=== PATIENT | male | born 1975 | race Caucasian/White ===

== ENCOUNTER 2017-10-05 21:06 | Emergency (ER) | payer OTHER ==
[2017-10-05 22:58] LABS: Hematocrit 44 % (42-52); Hemoglobin 14.7 g/dl (14.0-18.0); Mean Corpuscular HGB Conc 34 g/dl (31-36); Mean Corpuscular Hemoglobin 30 pg (27-31); Mean Corpuscular Volume 89 fL (80-94); Mean Platelet Volume 9 um3 (7.4-10.4); Red Blood Count 4.92 10^6/ul (4.0-5.4); Red Cell Distribution Width 14 % (10.5-15); White Blood Count 12.6 10^3/ul (3.5-10.8)
[2017-10-05 23:07] LABS: Albumin 4.1 g/dL (3.2-5.2); BUN/Creatinine Ratio 11.5 (8-20); Calcium 9.3 mg/dL (8.6-10.3); EGFR African American 78.6 (>60); EGFR Non-African American 61.1 (>60); Globulin 2.3 g/dL (2-4); Potassium 3.9 mmol/L (3.5-5.0); Total Bilirubin 0.6 mg/dL (0.2-1.0); Total Protein 6.4 g/dL (6.4-8.9)
[2017-10-05] MEDS ORDERED: NS 0.9% 1000 ML* 1,000 ML IV ONE (23:18)
[2017-10-06] MEDS ORDERED: Morphine INJ* 4 MG/ML 1 ML CARPUJECT IV ONE (00:18)
[2017-10-06 00:49] LABS: Urine Bacteria Absent (Absent); Urine Bilirubin Negative (Negative); Urine Glucose 1+(50 mg/dL) (Negative); Urine Nitrite Negative (Negative)
[2017-10-06 00:53] LABS: BUN/Creatinine Ratio 13.7 (8-20); Calcium 8.8 mg/dL (8.6-10.3); EGFR Non-African American 80.9 (>60); Potassium 3.8 mmol/L (3.5-5.0)
--- NOTE | 2017-10-06 01:52 | ED ---
Hemanth Darby Nikita, scribed for Chacorta Hinojosa MD on 10/05/17 at 2200 . Abdominal Pain/Male - HPI Summary HPI Summary: This patient is a 42 year old M presenting to ED with a chief complaint of R flank pain s/p working on his car at 1930. The CC is described as intermittent, starting out as mild pain and has worsened since onset. The patient rates the pain 10/10 in severity. Symptoms aggravated by standing and sitting. Symptoms alleviated by lying down. Patient reports vomiting (x2 at 2030) and dark urine. Patient denies hematuria and testicular pain. PMHx of kidney stones and Cardona s (dx 2 years ago). - History of Current Complaint Chief Complaint: EDFlankPain Stated Complaint: BACK PAIN Hx Obtained From: Patient Onset/Duration: Sudden Onset, Lasting Hours, Still Present Timing: Intermittent, Lasting Hours Severity Initially: Severe Severity Currently: Severe Pain Intensity: 10 Pain Scale Used: 0-10 Numeric Location: Flank - R flank Radiates: No Aggravating Factor(s): Other: - standing and sitting Alleviating Factor(s): Position - lying down Associated Signs And Symptoms: Positive: Other - Patient reports vomiting (x2 at 2030) and dark urine. Patient denies hematuria and testicular pain. - Allergies/Home Medications Allergies/Adverse Reactions: Allergies Allergy/AdvReac Type Severity Reaction Status Date / Time No Known Allergies Allergy Verified 12/05/16 08:01 PMH/Surg Hx/FS Hx/Imm Hx Endocrine/Hematology History: Denies: Hx Anticoagulant Therapy, Hx Blood Disorders, Hx Diabetes, Hx Systemic Lupus Erythematosus Cardiovascular History: Denies: Hx Congestive Heart Failure, Hx Hypertension History: Reports: Hx Kidney Stones Denies: Hx Dialysis, Hx Renal Disease Musculoskeletal History: Denies: Hx Rheumatoid Arthritis Sensory History: Reports: Hx Contacts or Glasses - GLASSES Denies: Hx Hearing Aid Opthamlomology History: Reports: Hx Contacts or Glasses - GLASSES - Cancer History Hx Chemotherapy: No - Surgical History Surgery Procedure, Year, and Place: COLONOSCOPY 2012 [facility] Hx Anesthesia Reactions: Yes - UNABLE TO DO COLONOSCOPY W/SEDATION, REQUIRED GEN.NEEDED "A LOT" OF ANES Infectious Disease History: No Infectious Disease History: Denies: Traveled Outside the [place] in Last 30 Days - Family History Known Family History: Positive: Cardiac Disease, Diabetes Negative: Hypertension - Social History Alcohol Use: None Substance Use Type: Reports: None Smoking Status (MU): Former Smoker Amount Used/How Often: 1/2 ppd Length of Time of Smoking/Using Tobacco: 15 YRS Have You Smoked in the Last Year: Yes Review of Systems Positive: Abdominal Pain - R flank pain, Vomiting - (x2 at 2030) Positive: other - dark urine; denies testicular pain. Negative: hematuria All Other Systems Reviewed And Are Negative: Yes Physical Exam Triage Information Reviewed: Yes Vital Signs On Initial Exam: Initial Vitals Temp Pulse Resp BP Pulse Ox 96.9 F 90 22 138/89 98 10/05/17 21:07 10/05/17 21:07 10/05/17 21:07 10/05/17 21:07 10/05/17 21:07 Vital Signs Reviewed: Yes Appearance: Positive: Well-Appearing, No Pain Distress, Well-Nourished Skin: Positive: Warm, Other - no rash Head/Face: Positive: Normal Head/Face Inspection Eyes: Positive: Normal ENT: Positive: Normal ENT inspection, Other - normal mucous membranes Neck: Positive: Supple, Nontender Respiratory/Lung Sounds: Positive: Clear to Auscultation Cardiovascular: Positive: Normal Abdomen Description: Positive: Soft, CVA Tenderness (R) Bowel Sounds: Positive: Present Musculoskeletal: Positive: Normal, Strength/ROM Intact Neurological: Positive: Normal, Alert, Oriented to Person Place, Time Psychiatric: Positive: Normal Diagnostics - Vital Signs Vital Signs Temp Pulse Resp BP Pulse Ox 10/05/17 21:07 96.9 F 90 22 138/89 98 - Laboratory Lab Results: Lab Results 10/05/17 10/05/17 10/05/17 Range/Units 21:54 21:54 21:54 WBC 12.6 H (3.5-10.8) 10^3/ul RBC 4.92 (4.0-5.4) 10^6/ul Hgb 14.7 (14.0-18.0) g/dl Hct 44 (42-52) % MCV 89 (80-94) fL MCH 30 (27-31) pg MCHC 34 (31-36) g/dl RDW 14 (10.5-15) % Plt Count 287 (150-450) 10^3/ul MPV 9 (7.4-10.4) um3 Neut % (Auto) 77.2 (38-83) % Lymph % (Auto) 12.5 L (25-47) % Yell % (Auto) 7.2 (1-9) % Eos % (Auto) 2.2 (0-6) % Baso % (Auto) 0.9 (0-2) % Absolute Neuts (auto) 9.8 H (1.5-7.7) 10^3/ul Absolute Lymphs (auto) 1.6 (1.0-4.8) 10^3/ul Absolute Monos (auto) 0.9 H (0-0.8) 10^3/ul Absolute Eos (auto) 0.3 (0-0.6) 10^3/ul Absolute Basos (auto) 0.1 (0-0.2) 10^3/ul Absolute Nucleated RBC 0 10^3/ul Nucleated RBC % 0 INR (Anticoag Therapy) 0.94 (0.77-1.02) Sodium 139 (133-145) mmol/L Potassium 3.9 (3.5-5.0) mmol/L Chloride 106 (101-111) mmol/L Carbon Dioxide 26 (22-32) mmol/L Anion Gap 7 (2-11) mmol/L BUN 15 (6-24) mg/dL Creatinine 1.30 H (0.67-1.17) mg/dL Est GFR ( Amer) 78.6 (>60) Est GFR (Non-Af Amer) 61.1 (>60) BUN/Creatinine Ratio 11.5 (8-20) Glucose 151 H (70-100) mg/dL Calcium 9.3 (8.6-10.3) mg/dL Total Bilirubin 0.60 (0.2-1.0) mg/dL AST 17 (13-39) U/L ALT 28 (7-52) U/L Alkaline Phosphatase 61 (34-104) U/L Total Protein 6.4 (6.4-8.9) g/dL Albumin 4.1 (3.2-5.2) g/dL Globulin 2.3 (2-4) g/dL Albumin/Globulin Ratio 1.8 (1-3) Lipase 63 (11.0-82.0) U/L Urine Color Urine Appearance Urine pH (5-9) Ur Specific [place] (1.010-1.030) Urine Protein (Negative) Urine Ketones (Negative) Urine Blood (Negative) Urine Nitrate (Negative) Urine Bilirubin (Negative) Urine Urobilinogen (Negative) Ur Leukocyte Esterase (Negative) Urine WBC (Auto) (Absent) Urine RBC (Auto) (Absent) Urine Bacteria (Absent) Urine Glucose (Negative) 10/06/17 10/06/17 Range/Units 00:23 00:23 WBC (3.5-10.8) 10^3/ul RBC (4.0-5.4) 10^6/ul Hgb (14.0-18.0) g/dl Hct (42-52) % MCV (80-94) fL MCH (27-31) pg MCHC (31-36) g/dl RDW (10.5-15) % Plt Count (150-450) 10^3/ul MPV (7.4-10.4) um3 Neut % (Auto) (38-83) % Lymph % (Auto) (25-47) % Yell % (Auto) (1-9) % Eos % (Auto) (0-6) % Baso % (Auto) (0-2) % Absolute Neuts (auto) (1.5-7.7) 10^3/ul Absolute Lymphs (auto) (1.0-4.8) 10^3/ul Absolute Monos (auto) (0-0.8) 10^3/ul Absolute Eos (auto) (0-0.6) 10^3/ul Absolute Basos (auto) (0-0.2) 10^3/ul Absolute Nucleated RBC 10^3/ul Nucleated RBC % INR (Anticoag Therapy) (0.77-1.02) Sodium 139 (133-145) mmol/L Potassium 3.8 (3.5-5.0) mmol/L Chloride 108 (101-111) mmol/L Carbon Dioxide 24 (22-32) mmol/L Anion Gap 7 (2-11) mmol/L BUN 14 (6-24) mg/dL Creatinine 1.02 (0.67-1.17) mg/dL Est GFR ( Amer) 104.0 (>60) Est GFR (Non-Af Amer) 80.9 (>60) BUN/Creatinine Ratio 13.7 (8-20) Glucose 136 H (70-100) mg/dL Calcium 8.8 (8.6-10.3) mg/dL Total Bilirubin (0.2-1.0) mg/dL AST (13-39) U/L ALT (7-52) U/L Alkaline Phosphatase (34-104) U/L Total Protein (6.4-8.9) g/dL Albumin (3.2-5.2) g/dL Globulin (2-4) g/dL Albumin/Globulin Ratio (1-3) Lipase (11.0-82.0) U/L Urine Color Yellow Urine Appearance Cloudy Urine pH 5.0 (5-9) Ur Specific [place] 1.017 (1.010-1.030) Urine Protein 1+(30 mg/dl) H (Negative) Urine Ketones Negative (Negative) Urine Blood 3+ H (Negative) Urine Nitrate Negative (Negative) Urine Bilirubin Negative (Negative) Urine Urobilinogen Negative (Negative) Ur Leukocyte Esterase Negative (Negative) Urine WBC (Auto) Trace(0-5/hpf) (Absent) Urine RBC (Auto) 3+(>10/hpf) H (Absent) Urine Bacteria Absent (Absent) Urine Glucose 1+(50 mg/dl) H (Negative) Result Diagrams: 10/05/17 21:54 10/06/17 00:23 Lab Statement: Any lab studies that have been ordered have been reviewed, and results considered in the medical decision making process. - CT abd/pel CT Interpretation Completed By: Radiologist - 1. There is a 3 mm calculus involving the proximal aspect of the right ureter. There is mild proximal right hydroureter and right hydronephrosis. ED physician has reviewed this radiology report and agrees. Re-Evaluation - Re-Evaluation First Eval Re-Evaluation Time: 00:09 Comment: Discussed with pt about results. Pt feels better. Abdominal Pain Fem Course/Dx - Course Assessment/Plan: Pt feels better after medicaiton here in the ED. No UTI noted. Improved creatinine after fluids, indicative of possible prerenal azotemia. Relieved after fluids. Given that the stone is 3mm it is likely to pass on its own. Pt given flomax and pain medication. Instructed to follow up with urologist promptly. Pt agrees to and understands discharge instructions. - Diagnoses Differential Diagnosis/HQI/PQRI: Other - kidney stones and renal colic Provider Diagnoses: Kidney stones, Renal colic Discharge - Discharge Plan Condition: Improved Disposition: HOME Prescriptions: oxyCODONE/Acetamin 5/325 MG* [Percocet 5/325 TAB*] 1 tab PO Q6H PRN #10 tab MDD 4 tabs PRN Reason: Pain - Moderate To Severe Tamsulosin CAP* [Flomax CAP*] 0.4 mg PO BEDTIME #5 cap Patient Education Materials: Kidney Stones (ED), Renal Colic (ED) Referrals: Sindy Mathew MD [Primary Care Provider] - 7 Days Cruz Christianson MD [Medical Doctor] - Additional Instructions: PLEASE MAKE AN APPOINTMENT FIRST THING IN THE MORNING TO BE SEEN BY DR. CHRISTIANSON WITHIN 3-5 DAYS PLEASE RETURN TO THE EMERGENCY ROOM IF YOU HAVE ANY WORSENING OR CONCERNING SYMPTOMS PLEASE MAKE AN APPOINTMENT FIRST THING IN THE MORNING TO BE SEEN BY YOUR PRIMARY CARE DOCTOR WITHIN 1 WEEK The documentation as recorded by the Hemanth washing[place] Nikita accurately reflects the service I personally performed and the decisions made by me, Chacorta Hinojosa MD.
[2017-10-06 02:05] VITALS: BP 110/63
--- NOTE | 2017-10-06 07:43 | RAD ---
CLINICAL HISTORY: Right flank pain COMPARISON: August 19, 2015 TECHNIQUE: Multiple contiguous axial CT scans were obtained of the abdomen and pelvis, without intravenous contrast enhancement. Coronal and sagittal multiplanar reformations are submitted for review. Oral contrast was not administered. FINDINGS: The study is limited by the lack of intravenous contrast. This limits evaluation of the solid organs and vasculature. LUNG BASES: The lung bases are clear. LIVER: The liver is normal in shape, size, contour, and attenuation. BILE DUCTS: There is no intrahepatic or extrahepatic biliary dilatation. GALLBLADDER: The gallbladder is normal, without pericholecystic inflammatory change. PANCREAS: The pancreas is normal, without mass or ductal dilatation. SPLEEN: Normal in size and appearance. UPPER GI TRACT: Evaluation of the gastrointestinal tract is limited by incomplete gastric distention. The upper GI tract is unremarkable. SMALL BOWEL AND MESENTERY: The small bowel is normal in contour, course, and caliber. There is no obstruction or dilatation. COLON: The colon is normal in contour, course, caliber. There is no pericolonic inflammatory change. There is a tubular, vermiform, hollow viscus that is blind ending, and originates from the cecum, consistent with a normal appendix. There is no periappendiceal inflammatory change. This is best seen on axial images 133 through 144. ADRENALS: Normal bilaterally. KIDNEYS: There is a 0.5 cm calculus of the proximal third of the right ureter with mild pelviectasis and proximal hydroureter. BLADDER: The bladder is smooth in contour. PELVIC ORGANS: The prostate gland is normal. The seminal vesicles are symmetric. AORTA: The aorta is normal. IVC: Unremarkable LYMPH NODES: There is no lymphadenopathy by size criteria. ABDOMINAL WALL: There is no evidence for abdominal wall hernia. BONES AND SOFT TISSUES: The bones and soft tissues are unremarkable. OTHER: None IMPRESSION: PROXIMAL RIGHT URETERAL STONE WITH MILD HYDRONEPHROSIS.
== END 2017-10-06 02:15 | disposition home or self-care (01) ==
LOC: ED 21:06
DX: R10.84 Generalized abdominal pain (principal); R11.10 Vomiting, unspecified; Z87.891 Personal history of nicotine dependence; N20.0 Calculus of kidney; N23 Unspecified renal colic
CPT/HCPCS: 36415; 74176; 80048; 80053; 81003; 81015; 83690; 85025; 85610; 96374; 99283; J2270

== ENCOUNTER 2017-10-08 12:00 | Day surgery (SDC) | payer OTHER ==
--- NOTE | 2017-10-07 20:11 | HP ---
CC: Dr. Mathew; Dr. Christianson * ADMITTING HISTORY AND PHYSICAL: DATE OF ADMISSION: 10/08/17 ADMITTING DIAGNOSES: 1. Right flank pain. 2. Calculus, right proximal ureter. 3. Right hydronephrosis. PLANNED PROCEDURE: Right retrograde, right stent insertion, possible ureteroscopy (possibly to be followed in the near future by lithotripsy). SURGEON: Cruz Christianson MD ADMITTING HISTORY AND PHYSICAL: Rene Hernandez is a 42-year-old gentleman with a history of recurrent renal calculi. He had been evaluated initially in the emergency room and then in my office. A CT scan done on October 05 that revealed a calculus in the right proximal ureter. He continues to have fairly severe pain intermittently and an ultra-sound done in my office earlier today revealed persistent calculus in the right proximal ureter with right hydronephrosis. He was given the option of continuing conservative management, but because of the intensity of the pain, he would like to have more definitive treatment and is now being brought in for right stent insertion. I have explained to him that the cause of the proximal location of the calculus, he will likely require a two-stage procedure with an initial stent insertion to be followed by lithotripsy when that becomes available. PAST MEDICAL HISTORY: Significant for: 1. Renal calculi. 2. History of Glendy's granulomatosis. MEDICATIONS ON ADMISSION: 1. Flomax 0.4 mg once a day. 2. Prednisone 10 mg daily. 3. Hydrocodone p.r.n. ALLERGIES: No known drug allergies. REVIEW OF SYSTEMS: He denies any chest pain or shortness of breath. There is no history of diabetes mellitus or any other major systemic illness. PHYSICAL EXAMINATION GENERAL: Reveals a pleasant uncomfortable-appearing gentleman. VITAL SIGNS: Blood pressure is 150/92, pulse 87 per minute, temperature 97.2, oxygen saturation 99% on room air. LUNGS: Clear bilaterally. CARDIOVASCULAR EXAM: Regular rate and rhythm. S1, S2. ABDOMEN: Soft with right flank tenderness. IMPRESSION: A 42-year-old gentleman with a persistent calculus in the right proximal ureter causing episodic right flank pain and nausea. PLAN: Planned procedure is right retrograde, right stent insertion, possible ureteroscopy (possibly to be followed in the near future by lithotripsy). [id number]/[facility] #: [id number] SHERYL
[~2017-10-08 12:00] MED LIST: Buffered Lidocaine 0.9% SYRIN* 5 ML/SYR SYRINGE INTRADERM ONE; Famotidine IV* 10 MG/ML 2 ML (20 mg) IV ONE; GENTAMICIN ADULT IVPB ONE; Metoclopramide TAB* 10 MG PO ONE; NS 0.9% IVPB ONE
[2017-10-08] MEDS ORDERED: Buffered Lidocaine 0.9% SYRIN* 5 ML/SYR SYRINGE ONE (12:35)
[2017-10-08] MEDS ORDERED: Famotidine IV* 10 MG/ML 2 ML (20 mg) ONE (12:35)
[2017-10-08] MEDS ORDERED: Metoclopramide TAB* 10 MG ONE (12:35)
[2017-10-08] MEDS ORDERED: cefTRIAXone(*) 2 GM ADDV.VIAL IVPB ONE (13:38)
[2017-10-08] MEDS ORDERED: fentaNYL* 50 MCG/ML 2 ML VIAL (100 MCG VIAL) ONE ×2 (14:58→15:41)
[2017-10-08] MEDS ORDERED: Propofol* 10 MG/ML 20 ML BTL IV PUSH ONE (14:58)
[2017-10-08] MEDS ORDERED: Midazolam* 1 MG/ML 10 ML VIAL (10 MG) ONE (14:58)
[2017-10-08] MEDS ORDERED: Dexamethasone IV* 4 MG/ML 1 ML (4 MG) ONE (14:58)
[2017-10-08] MEDS ORDERED: Ketorolac INJ* 30 MG/ML 1 ML VIAL ONE (14:58)
[2017-10-08] MEDS ORDERED: KETAMINE HCL* 50 MG/ML 10 ML VIAL ONE (14:58)
[2017-10-08] MEDS ORDERED: Ondansetron INJ* 2 MG/ML VIAL ONE (14:58)
[2017-10-08] MEDS ORDERED: Lidocaine 2% PF * 5 ML VIAL ONE (14:58)
[2017-10-08] MEDS ORDERED: Iohexol 180 (CONTRAST) 10 ML SDV IV ONE (15:21)
[2017-10-08] MEDS ORDERED: EPHEDrine (Pressors)* 50 MG/ML VIAL ONE (15:51)
[2017-10-08] MEDS ORDERED: oxyCODONE/Acetamin 5/325 MG* TAB PO PRN (16:44)
[2017-10-08] MEDS ORDERED: Ondansetron INJ* 2 MG/ML VIAL IV PRN (16:44)
[2017-10-08] MEDS ORDERED: fentaNYL* 50 MCG/ML 2 ML VIAL (100 MCG VIAL) IV PRN (16:44)
[2017-10-08] MEDS ORDERED: Tamsulosin CAP* 0.4 MG ONE (17:47)
--- NOTE | 2017-10-08 18:04 | RAD ---
CPT II Codes: 6045F. Indication: Right stent placement. Fluoroscopic services provided for referring physician. 12 seconds of fluoroscopy time was used. This placement of a right ureteral stent. IMPRESSION: Fluoroscopic services provided for referring physician. Right ureteral stent placement.
[2017-10-08 18:21] VITALS: BP 132/82
--- NOTE | 2017-10-08 19:17 | RAD ---
Indication: Post op right stent placement. Single view of the abdomen demonstrates right ureteral stent in place. IMPRESSION: Right ureteral stent in place.
--- NOTE | 2017-10-09 00:04 | OP ---
CC: Dr. Mathew * DATE OF OPERATION: 10/08/17 - [facility] DATE OF : 79 SURGEON: Cruz Christianson MD ANESTHESIOLOGIST: Dr. Crandall. ANESTHESIA: General. PRE-OP DIAGNOSES: 1. Calculus, right proximal ureter. 2. Right flank pain. POST-OP DIAGNOSES: 1. Calculus, right proximal ureter. 2. Right flank pain. OPERATIVE PROCEDURE: Cystoscopy, right retrograde pyelogram, right ureteral calculus manipulation, and right stent insertion. COMPLICATIONS: None. POSTOPERATIVE CONDITION: Stable. STENT USED: A 6-Bermudian stent, right ureter. INDICATIONS: Rene Hernandez is a 42-year-old gentleman who has had persistent right flank pain secondary to a calculus in the right proximal ureter. He was given the option of continuing conservative management, but because of the severity of pain, would like to try and have a stent placed possibly to be followed in the near future by lithotripsy. DESCRIPTION OF PROCEDURE: After induction of general anesthesia, the patient was placed in dorsal lithotomy position. Sequential compression devices were in place and functioning. Initial cystoscopy revealed a normal-appearing urethra. The bladder was examined and appeared unremarkable. A guidewire was introduced into the right ureter. A 4-Bermudian open-ended catheter was introduced over the wire and the ureter was felt to be very narrow with the open -ended catheter being fairly snug over the wire. Retrograde pyelogram revealed mild fullness of the right collecting system. I could feel resistance in the proximal ureter at the level of the calculus, which was carefully manipulated proximally. Next, a 6-Bermudian stent was introduced and positioned under fluoroscopy with good proximal and distal positioning obtained. The bladder was emptied. The patient tolerated the procedure satisfactorily and the plan is to obtain a postoperative x-ray and decide on the next step, possibly lithotripsy. The patient was transferred back to recovery area in stable condition. [id number]/[facility] #: [id number] [facility]
== END 2017-10-08 18:22 | disposition home or self-care (01) ==
LOC: OR 12:00
PROVIDERS: ATTEND Urology
DX: N20.1 Calculus of ureter (principal); Z96.0 Presence of urogenital implants
CPT/HCPCS: 74000; 74420; A9270-GY; C1876; J0696; J1100; J1580; J1885; J2250; J2405; J2704; J3010

== ENCOUNTER 2017-10-20 12:04 | Day surgery (SDC) | payer OTHER ==
[~2017-10-20 12:04] MED LIST changes: +DiMENhydriNATE IV* 50 MG/ML VIAL IV PUSH PRN; -GENTAMICIN ADULT IVPB ONE; -Metoclopramide TAB* 10 MG PO ONE; +Morphine INJ* 2 MG/ML 1 ML CARPUJECT IV PRN; -NS 0.9% IVPB ONE; +PROCHLORPERAZINE INJ 5 MG/ML 2 ML VIAL IV PRN; +Scopolamine 1.5 mg* PATCH TRANSDERM PRN; +fentaNYL* 50 MCG/ML 2 ML VIAL (100 MCG VIAL) IV PRN; +oxyCODONE/Acetamin 5/325 MG* TAB PO PRN
[2017-10-20] MEDS ORDERED: Famotidine IV* 10 MG/ML 2 ML (20 mg) ONE (12:28)
[2017-10-20] MEDS ORDERED: cefTRIAXone(*) 2 GM ADDV.VIAL IVPB ONE (12:28)
[2017-10-20] MEDS ORDERED: Buffered Lidocaine 0.9% SYRIN* 5 ML/SYR SYRINGE ONE (12:28)
--- NOTE | 2017-10-20 12:40 | RAD ---
HISTORY: Shock wave lithotripsy COMPARISONS: October 14, 2017 VIEWS: Frontal views of the abdomen. FINDINGS: BOWEL: There is a nonspecific bowel gas pattern, with nondilated small bowel gas noted. CALCULI: A right ureteral stent is noted. BONES AND SOFT TISSUES: There are no osseous abnormalities. OTHER FINDINGS: None IMPRESSION: RIGHT URETERAL STENT
[2017-10-20] MEDS ORDERED: fentaNYL* 50 MCG/ML 2 ML VIAL (100 MCG VIAL) ONE (15:07)
[2017-10-20] MEDS ORDERED: Midazolam* 1 MG/ML 10 ML VIAL (10 MG) ONE (15:07)
[2017-10-20] MEDS ORDERED: KETAMINE HCL* 50 MG/ML 10 ML VIAL ONE (15:47)
[2017-10-20] MEDS ORDERED: Iohexol 180 (CONTRAST) 10 ML SDV IV ONE (15:55)
[2017-10-20] MEDS ORDERED: Furosemide IV* 10 MG/ML 2 ML VIAL (20 MG) ONE ×2 (15:58→17:45)
[2017-10-20] MEDS ORDERED: Lidocaine 2% PF * 5 ML VIAL ONE (16:07)
[2017-10-20] MEDS ORDERED: Dexamethasone IV* 4 MG/ML 1 ML (4 MG) ONE (16:07)
[2017-10-20] MEDS ORDERED: PROCHLORPERAZINE INJ 5 MG/ML 2 ML VIAL ONE (16:07)
[2017-10-20] MEDS ORDERED: Propofol* 10 MG/ML 20 ML BTL IV PUSH ONE (16:07)
[2017-10-20] MEDS ORDERED: Ondansetron INJ* 2 MG/ML VIAL ONE (16:07)
--- NOTE | 2017-10-20 16:47 | RAD ---
INDICATION: Right ureteral stent removal COMPARISON: None FINDINGS: 9 seconds of fluoroscopy were provided for the urology department. Fluoroscopic spot imaging of the abdomen were obtained for operative control and show right ureteral stent placement . CPT II Codes: 6045F (fluoro time doc)
[2017-10-20] MEDS ORDERED: Tamsulosin CAP* 0.4 MG ONE (17:02)
[2017-10-20 17:37] VITALS: BP 144/87
--- NOTE | 2017-10-21 13:16 | OP ---
CC: Dr. Sindy Mathew; Cruz Christianson MD OPERATIVE SUMMARY: DATE OF OPERATION: 10/20/17 DATE OF : 79 SURGEON: Cruz Christianson MD ANESTHESIOLOGIST: Dr. Vcikers ANESTHESIA: General. PRE-OP DIAGNOSES: 1. Right hydronephrosis. 2. Right proximal ureteral calculus. POST-OP DIAGNOSES: 1. Right hydronephrosis. 2. Right proximal ureteral calculus. OPERATIVE PROCEDURE: Cystoscopy, right stent removal, right retrograde pyelogram, right ureteroscopy , fragmentation and removal of right ureteral calculi, right pyeloscopy, and right stent insertion. INDICATIONS: Rene Hernandez is a 42-year-old gentleman, who had undergone urgent right stent insertio n for an obstructing calculus in the right proximal ureter. He is now being brought in for definitiv e treatment of the calculus. COMPLICATIONS: None. STENT USED: 6-Jamaican stent, right ureter. OPERATIVE FINDINGS: Approximately 6-mm calculus, right proximal ureter, just below ureterovesical ju nction with surrounding edema and inflammation. POSTOPERATIVE CONDITION: Stable. DESCRIPTION OF PROCEDURE: After induction of general anesthesia, the patient was placed in dorsal li thotomy position. Sequential compression devices were in place and functioning. Initial cystoscopy revealed a normal-appearing urethra. The bladder was entered and examined. There were significant c alcifications noted on the distal aspect of the stent coming out of the right ureter. The stent was removed. Retrograde pyelogram revealed fullness of the right collecting system. A 6-Jamaican semi-rig id ureteroscope was introduced and advanced under direct vision. There was quite a bit of edema and i nflammation noted in the mid and proximal ureter, probably as a result of the stent and the calcifica tions. In the proximal ureter just below the ureterovesical junction, an approximately 6-mm calculus was noted. This was engaged using a 3-prong grasper and was fairly friable and broke into 2 fragmen ts. Each of the fragments was carefully retrieved and sent for analysis. The ureteroscope was then placed back all the way up into the renal pelvis and pyeloscopy was performed to make sure there were no remaining fragments in the pelvis and none were noted. Once I was satisfied that all the sizable fragments had been successfully removed, a new 6-Jamaican stent was introduced and positioned under fl uoroscopy with good proximal and distal positioning obtained. The bladder was emptied. The patient t olerated the procedure satisfactorily and was transferred back to the recovery area in stable conditi on. [id number]/[facility] #: [id number]
[2017-10-23] MEDS ORDERED: Scopolamine PATCH Remove* 1 NOTE MISC PATCH OFF ONE (06:08)
== END 2017-10-20 17:55 | disposition home or self-care (01) ==
LOC: OR 12:04
PROVIDERS: ATTEND Urology
DX: N13.2 Hydronephrosis with renal and ureteral calculous obstruction (principal); Z96.0 Presence of urogenital implants
CPT/HCPCS: 74000; 74420; 82365; 88300; C1876; J0696; J0780; J1100; J1940; J2250; J2405; J2704; J3010

== ENCOUNTER 2018-03-21 07:52 | Emergency (ER) | payer OTHER ==
[2018-03-21 08:03] VITALS: BP 150/99
--- NOTE | 2018-03-21 12:39 | UC ---
Justen Darby Stephanie[facility] on 03/21/18 at 0929 . Throat Pain/Nasal Earnest HPI - HPI Summary HPI Summary: In room note: The pt is a 42 y/o M presenting to with c/o sinus pain on L side. Symptoms include nasal congestion and nasal pressure on L side of face. Pt reports his PCP Dr. Tyler usually removes stuff from his nasal area. The pt denies other physical complaints. The pt states he has been on prednisone for 2.5 years. Pt takes abx on Mondays, Tuesdays and Friday at night to control Wegeners symptoms. The pt denies pain in sinuses with breathing. Note: Vital signs stable. Pulse Ox 99. Temp 98.5. 4/10 sinus discomfort. 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 Recent visits for nasal congestion. Home medications include Bactrim. Pt is a smoker and has hx of kidney stones. Nurse note: Pt has a hx of Wegeners auto immune disease. pt states it is in his sinuses and he has been very congested. pt states he thinks the change in whether is affecting this. pt has had increased symptoms for about 1 week. - History of Current Complaint Chief Complaint: UCRespiratory Stated Complaint: CONGESTED Time Seen by Provider: 03/21/18 09:18 Hx Obtained From: Patient Onset/Duration: Gradual Onset, Still Present Severity: Moderate Pain Intensity: 4 Pain Scale Used: 0-10 Numeric Associated Signs & Symptoms: Positive: Sinus Discomfort - Allergies/Home Medications Allergies/Adverse Reactions: Allergies Allergy/AdvReac Type Severity Reaction Status Date / Time No Known Allergies Allergy Verified 03/21/18 08:03 Home Medications: Home Medications Sulfamethox/Trimethoprim DS* [Bactrim DS 800/160 TAB*] 1 tab PO BID 03/21/18 [ History Confirmed 03/21/18] PMH/Surg Hx/FS Hx/Imm Hx - Additional Past Medical History Additional PMH: jameson's and nasal mucousitis Previously Healthy: No Other History Of: Negative For: Anticoagulant Therapy - Surgical History Surgical History: Yes Surgery Procedure, Year, and Place: COLONOSCOPY 2012 [facility] WART REMOVAL RIGHT FOOT 3 WEEKS AGO [facility]. BIOPSY OF SINUS [facility]. 10/2017, ureteral stent placement, [facility] - Family History Known Family History: Positive: Cardiac Disease, Diabetes Negative: Hypertension - Social History Occupation: Employed Full-time Lives: With Family Alcohol Use: None Substance Use Type: None Smoking Status (MU): Current Some Day Smoker Type: Cigarettes Amount Used/How Often: 1 PPD Length of Time of Smoking/Using Tobacco: 15 YRS Have You Smoked in the Last Year: Yes When Did the Patient Quit Smoking/Using Tobacco: QUIT 08/17 Household Exposure Type: Cigarettes Review of Systems Constitutional: Negative Skin: Negative Eyes: Negative ENT: Sinus Congestion, Sinus Pain/Tenderness - L side Respiratory: Negative Cardiovascular: Negative Gastrointestinal: Negative Genitourinary: Negative Motor: Negative Neurovascular: Negative Musculoskeletal: Negative Neurological: Negative Psychological: Negative All Other Systems Reviewed And Are Negative: Yes - Comments Additional Review of Systems Comments: POSITIVE: SINUS PAIN ON L SIDE, SINUS CONGESTION Physical Exam - Summary Physical Exam Summary: Appearance: The patient is well-appearing, is in no pain distress, and is well- nourished. Eyes: Conjunctiva are clear. ENT: The hearing is grossly normal, the pharynx is normal, and the TMs are normal. There is no muffled or hoarse voice.TENDERNESS TO PALPATION OVER L MAXILLARY SINUS. NO EVIDENCE OF ERYTHEMA OR ULCERATION IN L NOSTRIL. Neck: The neck is supple and there is no lymphadenopathy. Respiratory: The chest is nontender. The lungs are clear, there are normal breath sounds, and there is no respiratory distress. Cardiovascular: Heart is regular rate and rhythm. There is no murmur. Abdomen: The abdomen is soft and nontender. There is no organomegaly. Bowel sounds: present Musculoskeletal: Strength is intact. The patient moves all extremities. Neurological: The patient is alert. Psychological: The patient displays age appropriate behavior Skin: Negative for rashes. Triage Information Reviewed: Yes Vital Signs: Initial Vital Signs Temp 98.5 F 03/21/18 07:55 Pulse 77 03/21/18 07:55 Resp 18 03/21/18 07:55 BP 150/99 03/21/18 07:55 Pulse Ox 99 03/21/18 07:55 Vital Signs Reviewed: Yes Throat Pain/Nasal Course/Dx - Course Course Of Treatment: Hypertensive BP reading (>=140/90); patient referred to PCP within 1 day - 4 weeks for follow up. Medications have been included in the original chart and reviewed. Pt with chronic L maxillary sinus discomfort secondary to Wegeners. Pt knows his home treatment and states that Dr. Tyler mechanically opens the sinus when he visits him. We discussed the pt continuing his home treatment and resting the next few days from work. - Differential Dx/Diagnosis Differential Diagnosis/HQI/PQRI: Other - sinusitis vs nasal ulcerations Provider Diagnoses: L maxillary sinus discomfort, chronic Discharge - Sign-Out/Discharge Documenting (check all that apply): Discharge/Admit/Transfer - Discharge - Discharge Plan Condition: Stable Disposition: HOME Patient Education Materials: Sinusitis (ED) Forms: *Work Release Referrals: Sindy Mathew MD [Primary Care Provider] - 3 Days Additional Instructions: PLEASE SEEK CARE AT THE EMERGENCY DEPARTMENT IF SYMPTOMS WORSEN OR IF NEW SYMPTOMS DEVELOP. Hypertensive BP reading (>=140/90); patient referred to PCP within 1 day - 4 weeks for follow up. we discussed: Follow up with Dr. Tyler. Call with any new symptoms, temperature or difficulty breathing. I have given you a work release note until March 23, 2018. - Billing Disposition and Condition Condition: STABLE Disposition: HOME The documentation as recorded by the Justen washington Stephanie accurately reflects the service I personally performed and the decisions made by me, Luciano Morales MD.
== END 2018-03-21 09:34 | disposition home or self-care (01) ==
LOC: UCEAST 07:52
DX: J34.89 Other specified disorders of nose and nasal sinuses (principal); A50.02 Early congenital syphilitic osteochondropathy; Z79.2 Long term (current) use of antibiotics; F17.210 Nicotine dependence, cigarettes, uncomplicated
CPT/HCPCS: 99211; G0463

== ENCOUNTER 2018-12-23 14:42 | Emergency (ER) | payer OTHER ==
[2018-12-23 15:11] VITALS: BP 111/74
[2018-12-23] MEDS ORDERED: Albuterol 2.5 MG/3 ML NEB.SOL* (0.083%) INH ONE (15:45)
[2018-12-23 16:09] LABS: Influenza A Molecular POSITIVE (Negative)
--- NOTE | 2018-12-23 16:18 | UC ---
Respiratory Complaint HPI - HPI Summary HPI Summary: hx. of wegeners treated last about 6 months ago. developed acute illness a few days ago, chills, sweats , did not take temperature. hx. of smoking - History of Current Complaint Chief Complaint: UCGeneralIllness Stated Complaint: ACHES, AND SINUS CONGESTION Time Seen by Provider: 12/23/18 15:36 Hx Obtained From: Patient Onset/Duration: Gradual Onset, Lasting Days Timing: Constant Severity Initially: Moderate Severity Currently: Moderate Pain Intensity: 8 Associated Signs And Symptoms: Positive: Wheezing - Risk Factors Pulmonary Embolism Risk Factors: Negative Cardiac Risk Factors: Negative - Allergies/Home Medications Allergies/Adverse Reactions: Allergies Allergy/AdvReac Type Severity Reaction Status Date / Time No Known Allergies Allergy Verified 12/23/18 15:11 Home Medications: Home Medications Gabapentin [Neurontin] 100 mg PO DAILY WITH MEAL 12/23/18 [History Confirmed ] PMH/Surg Hx/FS Hx/Imm Hx Previously Healthy: No - hx. of wegeners disease of the sinuses Other History Of: Negative For: Anticoagulant Therapy - Surgical History Surgical History: Yes Surgery Procedure, Year, and Place: COLONOSCOPY 2013 [facility] WART REMOVAL RIGHT FOOT 3 WEEKS AGO [facility]. BIOPSY OF SINUS [facility]. 10/2017, ureteral stent placement, [facility] - Family History Known Family History: Positive: Unknown, Cardiac Disease, Diabetes Negative: Hypertension - Social History Alcohol Use: None Substance Use Type: None Smoking Status (MU): Current Some Day Smoker Type: Cigarettes Amount Used/How Often: 1 PPD Length of Time of Smoking/Using Tobacco: 15 YRS Have You Smoked in the Last Year: Yes When Did the Patient Quit Smoking/Using Tobacco: QUIT 08/17 Household Exposure Type: Cigarettes Review of Systems All Other Systems Reviewed And Are Negative: Yes Constitutional: Positive: Fever Skin: Positive: Negative Eyes: Positive: Negative ENT: Positive: Negative Respiratory: Positive: Shortness Of Breath Cardiovascular: Positive: Negative Gastrointestinal: Positive: Negative Genitourinary: Positive: Negative Motor: Positive: Negative Physical Exam Triage Information Reviewed: Yes Appearance: Well-Appearing Vital Signs: Initial Vital Signs Temp 37.5 C 12/23/18 15:06 Pulse 80 12/23/18 15:06 Resp 18 12/23/18 15:06 BP 111/74 12/23/18 15:06 Pulse Ox 97 12/23/18 15:06 Vital Signs Reviewed: Yes Eye Exam: Normal Eyes: Positive: Conjunctiva Clear ENT Exam: Normal Neck exam: Normal Neck: Positive: Supple Respiratory: Positive: Wheezing Cardiovascular Exam: Normal Abdominal Exam: Normal Bowel Sounds: Positive: Present UC Diagnostic Evaluation - Laboratory O2 Sat by Pulse Oximetry: 97 Respiratory Course/Dx - Differential Dx/Diagnosis Provider Diagnosis: Influenza A Discharge - Sign-Out/Discharge Documenting (check all that apply): Patient Departure All imaging exams completed and their final reports reviewed: Yes - Discharge Plan Condition: Fair Disposition: HOME Prescriptions: Oseltamivir SUSP 75 MG dose* [Tamiflu SUSP 75 MG dose*] 75 mg PO BID #10 oral.syrin Patient Education Materials: Pulmonary Nodules (ED), Influenza (DC) Referrals: Sindy Mathew MD [Primary Care Provider] - - Billing Disposition and Condition Condition: FAIR Disposition: Home
== END 2018-12-23 16:44 | disposition home or self-care (01) ==
LOC: UCEAST 14:42
DX: J10.1 Influenza due to other identified influenza virus with other respiratory manifestations (principal); F17.210 Nicotine dependence, cigarettes, uncomplicated
CPT/HCPCS: 71046; 99212; G0463

== ENCOUNTER 2018-12-26 17:28 | Emergency (ER) | payer OTHER ==
[2018-12-26] MEDS ORDERED: predniSONE TAB* 20 MG PO ONE (19:16)
--- NOTE | 2018-12-26 19:26 | ED ---
Shortness of Breath - HPI Summary HPI Summary: Pt is a 43 y/o male who presents to the ED c/o SOB. He was diagnosed with the flu 3 days ago and was prescribed Tamiflu. Initially his symptoms improved, mainly his chest congestion, however the past 2 days he seems to be getting worse. Pt c/o subjective fever, chills, chest congestion, and intermittent SOB and chest tightness. He also notes he had epistaxis of his left nare earlier today. Pt rates the pain as a 4/10 in severity and acute in nature. He notes that he also had a breathing treatment at the 3 days ago which improved his sx. 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 He was on Prednisone for several years and just recently was weaned off the steroid. Pt also takes Gabapentin. He is a former smoker. - History of Current Complaint Chief Complaint: EDChestPainROMI Time Seen by Provider: 12/26/18 19:07 Hx Obtained From: Patient Onset/Duration: Gradual Onset, Lasting Days - 3, Worse Since Timing: Intermittent Episodes Lasting: - SOB and CP Current Severity: Moderate - 4/10 Dyspnea At: Rest Aggrevating Factors: Nothing Alleviating Factors: Other - breathing tx Associated Signs & Symptoms: Fever, Chills - Allergy/Home Medications Allergies/Adverse Reactions: Allergies Allergy/AdvReac Type Severity Reaction Status Date / Time No Known Allergies Allergy Verified 12/23/18 15:11 PMH/Surg Hx/FS Hx/Imm Hx Endocrine/Hematology History: Reports: Other Endocrine/Hematological Disorders - Glendy's Denies: Hx Anticoagulant Therapy, Hx Blood Disorders, Hx Diabetes, Hx Systemic Lupus Erythematosus, Hx Thyroid Disease Cardiovascular History: Denies: Hx Congestive Heart Failure, Hx Hypertension, Other Cardiovascular Problems/Disorders Respiratory History: Denies: Hx Asthma, Hx Chronic Obstructive Pulmonary Disease (COPD), Other Respiratory Problems/Disorders GI History: Denies: Hx Ulcer, Other GI Disorders History: Reports: Hx Kidney Stones - PRESENTLY Denies: Hx Dialysis, Hx Renal Disease, Other Problems/Disorders Musculoskeletal History: Denies: Hx Rheumatoid Arthritis Sensory History: Reports: Hx Contacts or Glasses - GLASSES Denies: Hx Hearing Aid Opthamlomology History: Reports: Hx Contacts or Glasses - GLASSES - Cancer History Hx Chemotherapy: Yes - NOT PRESENTLY - Surgical History Surgery Procedure, Year, and Place: COLONOSCOPY 2012 [facility] WART REMOVAL RIGHT FOOT 3 WEEKS AGO [facility]. BIOPSY OF SINUS [facility]. 10/2017, ureteral stent placement, [facility] Hx Anesthesia Reactions: Yes Infectious Disease History: No Infectious Disease History: Denies: Hx Hepatitis, Hx Human Immunodeficiency Virus (HIV), Traveled Outside the [place] in Last 30 Days - Family History Known Family History: Positive: Cardiac Disease, Diabetes Negative: Hypertension - Social History Alcohol Use: None Hx Substance Use: No Substance Use Type: Reports: None Hx Tobacco Use: Yes Smoking Status (MU): Former Smoker Type: Cigarettes Amount Used/How Often: 1 PPD Length of Time of Smoking/Using Tobacco: 15 YRS Have You Smoked in the Last Year: Yes Review of Systems Positive: Fever - subjective, Chills Positive: Epistaxis Positive: Chest Pain - tightness Positive: Shortness Of Breath, Other - chest congestion All Other Systems Reviewed And Are Negative: Yes Physical Exam - Summary Physical Exam Summary: Appearance: Well appearing, no pain distress Skin: warm, dry, reflects adequate perfusion Head/face: normal Eyes: EOMI, MIHAI ENT: mucous membranes moist, dried blood on left nare, no active bleeding Neck: supple, non-tender Respiratory: breath sounds present, diffuse expiratory wheezes, no rales or rhonchi Cardiovascular: RRR, pulses symmetrical Abdomen: non-tender, soft Bowel Sounds: present Musculoskeletal: normal, strength/ROM intact Neuro: normal, sensory motor intact, A&Ox3 Triage Information Reviewed: Yes Vital Signs On Initial Exam: Initial Vitals Temp Pulse Resp BP Pulse Ox 97.5 F 74 16 131/94 96 12/26/18 17:30 12/26/18 17:30 12/26/18 17:30 12/26/18 17:30 12/26/18 17:30 Vital Signs Reviewed: Yes Diagnostics - Vital Signs Vital Signs Temp Pulse Resp BP Pulse Ox 12/26/18 17:30 97.5 F 74 16 131/94 96 - Laboratory Lab Statement: Any lab studies that have been ordered have been reviewed, and results considered in the medical decision making process. - Radiology CXR Radiology Interpretation Completed By: ED Physician Summary of Radiographic Findings: No acute process. Pending official radiology report. - EKG 17:32 Cardiac Rate: NL - 61 bpm EKG Rhythm: Sinus Rhythm ST Segment: Normal EKG Comparison: No Significant Change - As compared to EKG in 2016 Summary of EKG Findings: 1st degree AV block, RAD, RBBB Re-Evaluation - Re-Evaluation First Eval Re-Evaluation Time: 20:13 Change: Improved Comment: Pt feels better after the breathing tx, however he still has significant wheezes. Course/Dx - Course Course Of Treatment: Nurse's notes reviewed. Well-appearing patient with a history of Glendy's granulomatous disease presents with wheezing and shortness of breath following influenza infection. He also had a minor nosebleed. He has known granulomas in the sinuses. No bleeding presently. Not currently on steroids. Steroids were given and he was given breathing treatments with significant relief. His chest x-ray is negative. He'll follow up closely with his primary care physician. Burst therapy with prednisone. - Diagnoses Differential Diagnosis/HQI/PQRI: Positive: Other - Flare of granulomatous disease, influenza pneumonia, reactive airway disease Provider Diagnoses: Influenza A, Glendy's granulomatosis, Wheezing Discharge - Sign-Out/Discharge Documenting (check all that apply): Patient Departure - Discharge Patient Received Moderate/Deep Sedation with Procedure: No - Discharge Plan Condition: Improved Disposition: HOME Prescriptions: Albuterol HFA INHALER* [Ventolin HFA Inhaler*] 2 puff INH Q4H PRN #1 mdi PRN Reason: Sob/Wheezing predniSONE TAB* [Deltasone 20 MG TAB*] 40 mg PO DAILY #8 tab Patient Education Materials: Influenza (ED) Referrals: Sindy Mathew MD [Primary Care Provider] - Additional Instructions: Call your doctor first thing in Friday morning to schedule prompt follow-up. Return with rebleeding, difficulty breathing, coughing up blood, worse, new symptoms or other concerns. Use a humidifier while sleeping. - Billing Disposition and Condition Condition: IMPROVED Disposition: Home - Attestation Statements Document Initiated by Scribe: Yes Documenting Scribe: Sofie Guidry Provider For Whom Neena is Documenting (Include Credential): Johnathan Krishnan MD Scribe Attestation: Sofie Darby scribed for Johnathan Krishnan MD on 12/26/18 at 2210. Scribe Documentation Reviewed: Yes Provider Attestation: The documentation as recorded by the scribe, Sofie Azari accurately reflects the service I personally performed and the decisions made by me, Jonhathan Krishnan MD Status of Scribe Document: Viewed
[2018-12-26] MEDS ORDERED: Albuterol/Ipratropium NEB.SOL* Albuterol 2.5 MG/Ipratropium 0.5 MG 3 ML INH ONE (20:03)
[2018-12-26 21:20] VITALS: BP 140/64
== END 2018-12-26 20:21 | disposition home or self-care (01) ==
LOC: ED 17:28
DX: J11.1 Influenza due to unidentified influenza virus with other respiratory manifestations (principal); M31.30 Wegener's granulomatosis without renal involvement; R06.2 Wheezing; R06.02 Shortness of breath; Z87.891 Personal history of nicotine dependence; R50.9 Fever, unspecified; R04.0 Epistaxis
CPT/HCPCS: 71046; 93005; 99283; A9270-GY; J7512

== ENCOUNTER 2019-11-17 15:57 | Emergency (ER) | payer OTHER ==
--- NOTE | 2019-11-17 16:44 | UC ---
Throat Pain/Nasal Earnest HPI - HPI Summary HPI Summary: 44 yo male presents with cough. He tells me that for the last 3 weeks he has had intermittent cough. He tells me that he has a hx of jameson's disease and was on advair and immunosuppressives at one time about 3 years ago. Currently he sees a middle school french teacher in [place] and has infusions prn. Last infusion was about 10 months ago. Last saw his rheum doctor about a month ago for labwork and stated "everything was fine" and held off on another infusion as pt was feeling well. Over the last 3 weeks he has been using an albuterol inhaler, which gives him great relief, but only for a short time. He feels wheezing worse at night and with activity. Is currently being evaluated for sinus issues by ENT - likely due to his jameson's. He denies fever, chills, chest pain, abdominal pain, n/v, hemoptysis. - History of Current Complaint Stated Complaint: CONGESTION Time Seen by Provider: 11/17/19 16:41 Hx Obtained From: Patient Onset/Duration: Gradual Onset Severity: Moderate Pain Intensity: 6 Pain Scale Used: 0-10 Numeric - Allergies/Home Medications Allergies/Adverse Reactions: Allergies Allergy/AdvReac Type Severity Reaction Status Date / Time No Known Allergies Allergy Verified 11/17/19 16:46 PMH/Surg Hx/FS Hx/Imm Hx Respiratory History: Other - wegeners Other History Of: Negative For: Anticoagulant Therapy - Surgical History Surgical History: Yes Surgery Procedure, Year, and Place: COLONOSCOPY 2012 [facility]. WART REMOVAL RIGHT FOOT 3 WEEKS AGO [facility]. BIOPSY OF SINUS [facility]. 10/2017, ureteral stent placement, [facility] [place] - Family History Known Family History: Positive: Cardiac Disease, Diabetes Negative: Hypertension - Social History Occupation: Employed Full-time Lives: With Family Alcohol Use: None Substance Use Type: None Smoking Status (MU): Former Smoker Type: Cigarettes Amount Used/How Often: 1 PPD Length of Time of Smoking/Using Tobacco: 15 YRS Have You Smoked in the Last Year: Yes When Did the Patient Quit Smoking/Using Tobacco: QUIT 08/17 Household Exposure Type: Cigarettes Review of Systems All Other Systems Reviewed And Are Negative: No Constitutional: Positive: Negative Skin: Positive: Negative Eyes: Positive: Negative ENT: Positive: Sinus Congestion Respiratory: Positive: Shortness Of Breath, Cough Cardiovascular: Positive: Negative Gastrointestinal: Positive: Negative Neurological: Positive: Negative Psychological: Positive: Negative Physical Exam - Summary Physical Exam Summary: GENERAL: NAD. WDWN. No pain distress. SKIN: No rashes, sores, lesions, or open wounds. HEENT: Head: AT/NC Eyes: EOM intact. Conjunctiva clear without inflammation or discharge. Ears: Hearing grossly normal. TMs intact, no bulging, erythema, or edema. Nose: Nasal mucosa pink and moist. NTTP maxillary and frontal sinus. Throat: Posterior oropharynx without exudates, erythema, or tonsillar enlargement. Uvula midline. NECK: Supple. Nontender. No lymphadenopathy. CHEST: Moderate expiratory wheezing throughout. No crackles. No accessory muscle use. Breathing comfortably and in no distress. CV: RRR. Pulses intact. Cap refill <2seconds NEURO: Alert. PSYCH: Age appropriate behavior. Triage Information Reviewed: Yes Vital Signs: Vital Signs: Temp Pulse Resp BP Pulse Ox 98.4 F 62 18 135/89 95 11/17/19 16:42 11/17/19 16:42 11/17/19 16:42 11/17/19 16:42 11/17/19 16:42 Vital Signs Reviewed: Yes Diagnostics - Radiology CXR Radiology Interpretation Completed By: Radiologist Summary of Radiographic Findings: IMPRESSION: No active cardiopulmonary disease is noted. Throat Pain/Nasal Course/Dx - Course Course Of Treatment: CXR as above. In the clinic pt was given a duoneb treatment and 8mg dexamethasone with great improvement of his wheezing, but subjectively he stated he did not feel much different. He was given another treatment with albuterol and ipratropium and had little change. Discussed with Dr. Castellano and recommends prednisone taper and f/u with middle school french teacher. I discussed with him returning to see his middle school french teacher and he will call them tomorrow. No indication of infectious process at this time, will start him on a prednisone burst and have him f/u with his middle school french teacher. - Differential Dx/Diagnosis Provider Diagnosis: Wheezing, Wegeners granulomatosis Discharge ED - Sign-Out/Discharge Documenting (check all that apply): Patient Departure All imaging exams completed and their final reports reviewed: Yes - Discharge Plan Condition: Stable Disposition: HOME Prescriptions: predniSONE 20 mg TAB [Deltasone 20 MG TAB*] 20 mg PO DAILY #20 tab Patient Education Materials: Granulomatosis with Polyangiitis (DC) Referrals: Andrez Coto [Primary Care Provider] - As Soon As Possible Additional Instructions: If you develop a fever, shortness of breath, chest pain, new or worsening symptoms - please call your PCP or go to the ED immediately. Your blood pressure was mildly elevated at todays visit. Please see your primary provider within 4 weeks for recheck and re-evaluation. Your chest x-ray was normal today. Please call your middle school french teacher in [place] and inform them of your symptoms and visit today. Start taking the prednisone tomorrow as you were given a dose of this today. - Billing Disposition and Condition Condition: STABLE Disposition: Home
[2019-11-17 16:46] VITALS: BP 135/89
[2019-11-17] MEDS ORDERED: Dexamethasone TAB* 4 MG PO ONE (16:58)
[2019-11-17] MEDS ORDERED: Albuterol/Ipratropium NEB.SOL* Albuterol 2.5 MG/Ipratropium 0.5 MG 3 ML INH ONE (16:58)
[2019-11-17] MEDS ORDERED: Albuterol 2.5 MG/3 ML NEB.SOL* (0.083%) INH ONE (17:30)
[2019-11-17] MEDS ORDERED: Ipratropium 0.5MG/2.5ML NEB* 0.5 MG/2.5 ML NEB.SOLN INH ONE (17:30)
== END 2019-11-17 18:17 | disposition home or self-care (01) ==
LOC: UCEAST 15:57
DX: M31.30 Wegener's granulomatosis without renal involvement (principal); R06.2 Wheezing; Z87.891 Personal history of nicotine dependence
CPT/HCPCS: 71046; 99213; A9270-GY; G0463; J8540